=== PATIENT | female | born 1995 | race Caucasian/White ===

== ENCOUNTER 2017-03-24 07:12 | Emergency (ER) | payer SELFPAY ==
[~2017-03-24] VITALS: Ht 154.9 cm; Wt 84.5 kg
[2017-03-24] MEDS ORDERED: IRON18TA2 PO (07:34)
[2017-03-24] MEDS ORDERED: ALBU17IN INH (08:29)
[2017-03-24] MEDS ORDERED: MOBI4TAB PO (08:29)
[2017-03-24] MEDS ORDERED: ZANA4TAB PO (08:29)
[2017-03-24] MEDS ORDERED: QVAR1AER2 IN (08:30)
[2017-03-24 08:40] VITALS: BP 127/74
== END 2017-03-24 08:42 | disposition home or self-care (01) ==
LOC: M ED 07:12
DX: Z76.0 Encounter for issue of repeat prescription (principal); M54.5 Low back pain; F17.200 Nicotine dependence, unspecified, uncomplicated; J45.909 Unspecified asthma, uncomplicated; G47.30 Sleep apnea, unspecified; Z79.899 Other long term (current) drug therapy; Z88.0 Allergy status to penicillin

== ENCOUNTER 2023-01-22 02:55 | Inpatient (IN) | payer MEDICAID, SELFPAY ==
[~2023-01-22] VITALS: Ht 157.5 cm; Wt 100.0 kg
[~2023-01-22 02:55] MED LIST: ALBU17IN INH; IRON18TA2 PO; MOBI4TAB PO; QVAR80AE10 IN; ZANA4TAB PO
[2023-01-22 03:26] LABS: HEMATOCRIT 41.2 % (36.0-47.0); HEMOGLOBIN 13.6 g/dl (12.0-15.5); MEAN CORPUSCULAR HEMOGLOBIN 27.1 pg (27.0-33.0); MEAN CORPUSCULAR VOLUME 82.2 fl (80.0-96.0); PLATELET COUNT, AUTOMATED 413 10^3/uL (150-450); RED BLOOD COUNT 5.01 10^6/uL (4.00-5.40); WHITE BLOOD COUNT 12.3 10^3/uL (4.0-10.0)
[2023-01-22 03:52] LABS: ETHYL ALCOHOL (ETHANOL) 0.201 % (0.000-0.010)
[2023-01-22 03:53] LABS: ACETAMINOPHEN LEVEL < 2.0 UG/ML (10.0-20.0); ALBUMIN 4.1 G/DL (3.2-5.2); ALKALINE PHOSPHATASE 78 U/L (46-116); ALT/SGPT 40 U/L (7.0-40); AST/SGOT 36 U/L (<34); BILIRUBIN,DIRECT < 0.1 MG/DL (<0.4); BILIRUBIN,TOTAL 0.2 MG/DL (0.3-1.2); BLOOD UREA NITROGEN 11 MG/DL (9-23); CALCIUM LEVEL 9.3 MG/DL (8.5-10.1); CARBON DIOXIDE LEVEL 18 MMOL/L (20-31); CHLORIDE LEVEL 107 MMOL/L (98-107); CREATININE FOR GFR 0.62 MG/DL (0.55-1.30); GLOMERULAR FILTRATION RATE > 60.0 (>60); GLUCOSE, FASTING 101 MG/DL (60-100); POTASSIUM SERUM 3.8 MMOL/L (3.5-5.1); SALICYLATE LEVEL < 3.0 MG/DL (<30); SODIUM LEVEL 139 MMOL/L (136-145); TOTAL PROTEIN 7.6 G/DL (5.7-8.2)
[2023-01-22 03:54] LABS: THYROID STIMULATING HORMONE 2.192 uIU/ML (0.55-4.78)
[2023-01-22 03:58] LABS: HCG, SERUM QUALITATIVE NEGATIVE (NEGATIVE)
[2023-01-22 04:00] LABS: AMPHETAMINES LEVEL URINE NEGATIVE (NEGATIVE); BARBITURATES URINE NEGATIVE (NEGATIVE); BENZODIAZEPINES URINE NEGATIVE (NEGATIVE); COCAINE METABOLITE URINE NEGATIVE (NEGATIVE); METHADONE URINE NEGATIVE (NEGATIVE); OPIATES URINE NEGATIVE (NEGATIVE); PHENCYCLIDINE URINE NEGATIVE (NEGATIVE)
[2023-01-22 04:08] LABS: CANNABINOIDS URINE POSITIVE (NEGATIVE)
[2023-01-22] MEDS ORDERED: NS 1,000 ML IV ONE (07:20)
[2023-01-22] MEDS ORDERED: NICOTINE 21MG/24HR 1 EA TRANSDERMAL TD ONE (08:00)
[2023-01-22] MEDS ORDERED: ACETAMINOPHEN TAB 650MG DOSE (2X325MG) PO ONE (08:00)
[2023-01-22] MEDS ORDERED: MOM 30ML SUSPENSION UDC PO PRN (12:15)
[2023-01-22] MEDS ORDERED: MAALOX 30 ML SUSP *UDC PO PRN (12:15)
[2023-01-22 13:34] VITALS: BP 135/62
[2023-01-22] MEDS ORDERED: ALBUTEROL 90 MCG/ACT 8GM HFA INHALER INH PRN (15:30)
[2023-01-22] MEDS ORDERED: LORazepam 2 MG TAB PO PRN (15:30)
[2023-01-22 15:42] VITALS: BP 135/62
[2023-01-22] MEDS: THIAMINE 100 MG TAB PO SCH ×2 (15:48→22:07)
[2023-01-22] MEDS: MULTIVITAMINS/MINERALS THERAP 1 TAB PO SCH (15:48)
[2023-01-22] MEDS: FOLIC ACID 1MG TAB PO SCH (15:48)
[2023-01-22] MEDS: ACETAMINOPHEN TAB 650MG DOSE (2X325MG) PO PRN (15:53)
[2023-01-22] MEDS ORDERED: ALBU8.5H INH (16:22)
[2023-01-22] MEDS ORDERED: HOME MED LIST COMPLETE! XX SCH (16:25)
[2023-01-23] MEDS: traZODone 50 MG TAB PO PRN ×2 (00:30→21:31)
[2023-01-23] MEDS: OLANZapine ORAL DISINTEGRATING TAB 5MG PO PRN ×3 (00:30→15:32)
[2023-01-23 06:38] VITALS: BP 117/56
[2023-01-23 08:44] VITALS: BP 117/56
[2023-01-23] MEDS: THIAMINE 100 MG TAB PO SCH ×2 (09:00→21:31)
[2023-01-23] MEDS: FOLIC ACID 1MG TAB PO SCH (09:00)
[2023-01-23] MEDS: MULTIVITAMINS/MINERALS THERAP 1 TAB PO SCH (09:00)
[2023-01-23] MEDS: NICOTINE 21MG/24HR 1 EA TRANSDERMAL TD SCH (15:30)
[2023-01-23] MEDS: LIDOCAINE 5% (LIDODERM) PATCH TD SCH (15:34)
[2023-01-23 16:52] VITALS: BP 137/69
[2023-01-23 17:00] VITALS: BP 137/69
[2023-01-24 01:00] VITALS: BP 137/69
[2023-01-24 07:01] VITALS: BP 122/68
[2023-01-24 08:00] LABS: BLOOD UREA NITROGEN 9 MG/DL (9-23); CALCIUM LEVEL 8.3 MG/DL (8.5-10.1); CARBON DIOXIDE LEVEL 26 MMOL/L (20-31); CHLORIDE LEVEL 109 MMOL/L (98-107); CREATININE FOR GFR 0.66 MG/DL (0.55-1.30); GLOMERULAR FILTRATION RATE > 60.0 (>60); GLUCOSE, FASTING 96 MG/DL (60-100); POTASSIUM SERUM 4.2 MMOL/L (3.5-5.1); SODIUM LEVEL 140 MMOL/L (136-145)
[2023-01-24] MEDS ORDERED: FLUoxetine 10 MG CAP PO SCH (09:00)
[2023-01-24] MEDS: FOLIC ACID 1MG TAB PO SCH (09:14)
[2023-01-24] MEDS: LIDOCAINE 5% (LIDODERM) PATCH TD SCH (09:14)
[2023-01-24] MEDS: THIAMINE 100 MG TAB PO SCH (09:14)
[2023-01-24] MEDS: MULTIVITAMINS/MINERALS THERAP 1 TAB PO SCH (09:14)
[2023-01-24] MEDS: NICOTINE 21MG/24HR 1 EA TRANSDERMAL TD SCH (09:15)
[2023-01-24 14:30] VITALS: BP 122/68
[2023-01-24 18:00] VITALS: BP 126/65
[2023-01-24] MEDS ORDERED: PRAZOSIN 1 MG CAP PO SCH (21:00)
[2023-01-24] MEDS: traZODone 50 MG TAB PO PRN (21:49)
[2023-01-24 21:50] VITALS: BP 132/84
[2023-01-24] MEDS: OLANZapine ORAL DISINTEGRATING TAB 5MG PO PRN (21:50)
[2023-01-24] MEDS: ACETAMINOPHEN TAB 650MG DOSE (2X325MG) PO PRN (21:52)
[2023-01-25 06:19] VITALS: BP 124/61
[2023-01-25] MEDS: NICOTINE 21MG/24HR 1 EA TRANSDERMAL TD SCH (08:17)
[2023-01-25] MEDS: FOLIC ACID 1MG TAB PO SCH (08:17)
[2023-01-25] MEDS: LIDOCAINE 5% (LIDODERM) PATCH TD SCH (08:18)
[2023-01-25] MEDS ORDERED: NICO21PAT TD (08:29)
[2023-01-25] MEDS ORDERED: MINI1CAP PO (08:29)
[2023-01-25] MEDS ORDERED: TRAZ-252 PO (08:29)
[2023-01-25] MEDS ORDERED: LIDO5TD TD (08:29)
[2023-01-25] MEDS ORDERED: FLUO20CA22 PO (08:29)
[2023-01-25] MEDS ORDERED: FLUoxetine 20MG CAP PO SCH (09:00)
== END 2023-01-25 11:14 | disposition home or self-care (01) | DRG 755 ==
LOC: M ED 02:55 → M ED INP 12:15 → M PSY 14:20
PROVIDERS: ADMIT Psychiatry & Neurology Psychiatry; ATTEND Student in an Organized Health Care Education/Training Program
DX: F43.10 Post-traumatic stress disorder, unspecified (principal); F12.90 Cannabis use, unspecified, uncomplicated; F10.10 Alcohol abuse, uncomplicated; F32.A Depression, unspecified; F41.8 Other specified anxiety disorders; R45.851 Suicidal ideations; F17.210 Nicotine dependence, cigarettes, uncomplicated; Z88.0 Allergy status to penicillin; J45.20 Mild intermittent asthma, uncomplicated; G47.33 Obstructive sleep apnea (adult) (pediatric); E66.9 Obesity, unspecified; D72.829 Elevated white blood cell count, unspecified; E87.20 Acidosis, unspecified

== ENCOUNTER 2023-07-05 09:44 | Inpatient (IN) | payer OTHER, MEDICAID ==
[~2023-07-05] VITALS: Ht 157.5 cm; Wt 93.2 kg
[~2023-07-05 09:44] MED LIST changes: +ALBU8.5H INH; +FLUO20CA22 PO; +LIDO5TD TD; +MINI1CAP PO; +NICO21PAT TD; +TRAZ-252 PO
[2023-07-05] MEDS ORDERED: KETOROLAC 30 MG/ML 1ML VIAL IV ONE (10:25)
[2023-07-05] MEDS ORDERED: ISOVUE-370 76% 100ML VIAL As Ordered ONE (10:56)
[2023-07-05 13:04] LABS: ALBUMIN 3.1 G/DL (3.2-5.2); ALKALINE PHOSPHATASE 142 U/L (46-116); ALT/SGPT 53 U/L (7.0-40); AST/SGOT 31 U/L (<34); BILIRUBIN,TOTAL < 0.2 MG/DL (0.3-1.2); BLOOD UREA NITROGEN 11 MG/DL (9-23); CALCIUM LEVEL 8.9 MG/DL (8.5-10.1); CARBON DIOXIDE LEVEL 26 MMOL/L (20-31); CHLORIDE LEVEL 105 MMOL/L (98-107); GLOMERULAR FILTRATION RATE > 60.0 (>60); GLUCOSE, FASTING 97 MG/DL (60-100); POTASSIUM SERUM 4.8 MMOL/L (3.5-5.1); SODIUM LEVEL 138 MMOL/L (136-145); TOTAL PROTEIN 7.1 G/DL (5.7-8.2)
[2023-07-05 13:34] LABS: BASO # 0.1 10^3/uL (0.0-0.2); BASO % 0.6 % (0.0-1.0); EOS # 0.5 10^3/uL (0.0-0.5); HEMATOCRIT 39.4 % (36.0-47.0); HEMOGLOBIN 12.6 g/dl (12.0-15.5); LYMPH # 2.1 10^3/uL (1.5-5.0); MEAN CORPUSCULAR HEMOGLOBIN 27.2 pg (27.0-33.0); MEAN CORPUSCULAR VOLUME 85.1 fl (80.0-96.0); MONO # 0.5 10^3/uL (0.0-0.8); NEUTROPHILS # 7.6 10^3/uL (1.5-8.5); NEUTROPHILS % 70.1 % (36.0-66.0); PLATELET COUNT, AUTOMATED 523 10^3/uL (150-450); RED BLOOD COUNT 4.63 10^6/uL (4.00-5.40); WHITE BLOOD COUNT 10.8 10^3/uL (4.0-10.0)
[2023-07-05 13:57] LABS: INR 1.08; PROTHROMBIN TIME 13.7 SECONDS (12.5-14.5)
[2023-07-05 14:27] LABS: HIV 1&2 SCREEN NEGATIVE (NEGATIVE)
[2023-07-05] MEDS ORDERED: HOME MED LIST COMPLETE! XX SCH (14:45)
[2023-07-05] MEDS ORDERED: MED REC IN PROGRESS XX SCH (14:45)
[2023-07-05 14:59] LABS: ERYTHROCYTE SEDIMENTATION RATE > 130 mm/hr (0-20)
[2023-07-05] MEDS ORDERED: ACETAMINOPHEN TAB 650MG DOSE (2X325MG) PO PRN (15:05)
[2023-07-05 15:06] LABS: PROCALCITONIN <0.04 ng/ml
[2023-07-05 15:45] VITALS: TEMP 97.3; O2SAT 96
[2023-07-05] MEDS ORDERED: PILL CUTTER 1 EACH XX PRN (15:55)
[2023-07-05] MEDS ORDERED: KETOROLAC 30 MG/ML 1ML VIAL IV PRN (16:00)
[2023-07-05] MEDS: ALBUTEROL SULFATE 2.5MG/0.5ML INH NEB SOLN NEB SCH (19:20)
[2023-07-05] MEDS: oxyCODONE 5MG TAB PO PRN (19:37)
[2023-07-05] MEDS: tiZANidine 4 MG TAB PO PRN (19:38)
[2023-07-05 20:58] VITALS: BP 105/64; TEMP 98.1; O2SAT 100
[2023-07-05] MEDS: NICOTINE 21MG/24HR 1 EA TRANSDERMAL TD PRN (21:43)
[2023-07-06] MEDS: ALBUTEROL SULFATE 2.5MG/0.5ML INH NEB SOLN NEB SCH ×4 (00:54→19:30)
[2023-07-06] MEDS: tiZANidine 4 MG TAB PO PRN (01:09)
[2023-07-06] MEDS: oxyCODONE 5MG TAB PO PRN ×3 (01:10→21:36)
[2023-07-06 05:11] VITALS: BP_SYST 64; TEMP 96.6; O2SAT 98
[2023-07-06] MEDS ORDERED: ISOVUE-370 76% 100ML VIAL As Ordered ONE (10:32)
[2023-07-06] MEDS ORDERED: D5W/0.9% SODIUM CHLORIDE 1,000 ML IV ONE (11:10)
[2023-07-06 12:53] LABS: BASO # 0.1 10^3/uL (0.0-0.2); BASO % 0.6 % (0.0-1.0); EOS # 0.6 10^3/uL (0.0-0.5); EOS % 5.7 % (0.0-3.0); HEMATOCRIT 39.9 % (36.0-47.0); HEMOGLOBIN 12.5 g/dl (12.0-15.5); LYMPH # 1.9 10^3/uL (1.5-5.0); MEAN CORPUSCULAR HEMOGLOBIN 26.8 pg (27.0-33.0); MEAN CORPUSCULAR HGB CONC 31.3 g/dl (32.0-36.5); MEAN CORPUSCULAR VOLUME 85.4 fl (80.0-96.0); MONO # 0.5 10^3/uL (0.0-0.8); MONO % 4.9 % (2.0-8.0); NEUTROPHILS # 6.9 10^3/uL (1.5-8.5); NEUTROPHILS % 69.4 % (36.0-66.0); PLATELET COUNT, AUTOMATED 530 10^3/uL (150-450); RED BLOOD COUNT 4.67 10^6/uL (4.00-5.40)
[2023-07-06 13:22] LABS: BLOOD UREA NITROGEN 10 MG/DL (9-23); CALCIUM LEVEL 8.8 MG/DL (8.5-10.1); CARBON DIOXIDE LEVEL 26 MMOL/L (20-31); CHLORIDE LEVEL 103 MMOL/L (98-107); GLOMERULAR FILTRATION RATE > 60.0 (>60); GLUCOSE, FASTING 82 MG/DL (60-100); POTASSIUM SERUM 4.7 MMOL/L (3.5-5.1); SODIUM LEVEL 137 MMOL/L (136-145)
[2023-07-06 16:00] VITALS: BP 97/66; TEMP 97.9; O2SAT 96
[2023-07-06] MEDS ORDERED: EPINEPHrine 1MG/10ML SYRINGE 1.5IN As Ordered ONE (16:49)
[2023-07-06] MEDS ORDERED: LIDOCAINE 2% MDV 20ML VIAL As Ordered ONE (16:49)
[2023-07-06] MEDS ORDERED: THROMBIN 5,000 UNITS VIAL As Ordered ONE (16:49)
[2023-07-06] MEDS ORDERED: CETACAINE SPRAY 5GM As Ordered ONE (16:49)
[2023-07-06] MEDS ORDERED: LIDOCAINE 2% 100MG/5ML SDV (FOR ANES.) As Ordered ONE (16:53)
[2023-07-06] MEDS ORDERED: propofoL 200 MG/20 ML VIAL As Ordered ONE (16:53)
[2023-07-06] MEDS ORDERED: ONDANSETRON 4MG 2ML VIAL As Ordered ONE (16:53)
[2023-07-06] MEDS ORDERED: MIDAZOLAM INJ 2MG/2ML VIAL As Ordered ONE (16:53)
[2023-07-06] MEDS ORDERED: ROCURONIUM BROMIDE 50MG/5ML VIAL As Ordered ONE (16:53)
[2023-07-06] MEDS ORDERED: fentaNYL 100 MCG/2 ML INJECTION As Ordered ONE ×2 (16:53→17:56)
[2023-07-06] MEDS: fentaNYL 100 MCG/2 ML INJECTION IV PRN ×2 (17:53→18:00)
[2023-07-06] MEDS ORDERED: IPRATROPIUM 0.5MG/ALBUTEROL 2.5MG INH SOL UD 3ML (DUONEB) NEB STA (17:54)
[2023-07-06] MEDS: NICOTINE 21MG/24HR 1 EA TRANSDERMAL TD PRN (21:36)
[2023-07-06 22:00] VITALS: BP 100/65; TEMP 97.9; O2SAT 98
[2023-07-07] MEDS: ALBUTEROL SULFATE 2.5MG/0.5ML INH NEB SOLN NEB SCH ×2 (01:28→07:54)
[2023-07-07] MEDS: tiZANidine 4 MG TAB PO PRN (02:55)
[2023-07-07 06:00] VITALS: BP 100/61; TEMP 98.1; O2SAT 99
[2023-07-07 07:56] LABS: BASO % 0.1 % (0.0-1.0); EOS % 0.1 % (0.0-3.0); HEMATOCRIT 36.6 % (36.0-47.0); HEMOGLOBIN 11.7 g/dl (12.0-15.5); LYMPH # 1.2 10^3/uL (1.5-5.0); MEAN CORPUSCULAR HEMOGLOBIN 27.1 pg (27.0-33.0); MEAN CORPUSCULAR VOLUME 84.7 fl (80.0-96.0); MONO # 0.4 10^3/uL (0.0-0.8); MONO % 3.1 % (2.0-8.0); NEUTROPHILS # 11.7 10^3/uL (1.5-8.5); NEUTROPHILS % 87.3 % (36.0-66.0); PLATELET COUNT, AUTOMATED 510 10^3/uL (150-450); RED BLOOD COUNT 4.32 10^6/uL (4.00-5.40); WHITE BLOOD COUNT 13.4 10^3/uL (4.0-10.0)
[2023-07-07] MEDS ORDERED: TIZA10TA PO (07:57)
[2023-07-07] MEDS ORDERED: IBUP-1022 PO (07:57)
[2023-07-07] MEDS ORDERED: ACET-897 PO (07:57)
[2023-07-07] MEDS ORDERED: OXYC-517 PO (07:57)
[2023-07-07 08:20] LABS: BLOOD UREA NITROGEN 10 MG/DL (9-23); CALCIUM LEVEL 9.1 MG/DL (8.5-10.1); CARBON DIOXIDE LEVEL 25 MMOL/L (20-31); CHLORIDE LEVEL 104 MMOL/L (98-107); CREATININE FOR GFR 0.56 MG/DL (0.55-1.30); GLOMERULAR FILTRATION RATE > 60.0 (>60); GLUCOSE, FASTING 106 MG/DL (60-100); POTASSIUM SERUM 4.6 MMOL/L (3.5-5.1); SODIUM LEVEL 139 MMOL/L (136-145)
== END 2023-07-07 11:14 | disposition home or self-care (01) | DRG 144 ==
LOC: M ED 09:44 → EDBD 09:44 → M ED INP 15:01 → ENRESERV 15:24 → M MSPAV 15:44
PROVIDERS: ADMIT Internal Medicine Nephrology; ATTEND Internal Medicine Pulmonary Disease
PROC: 0B9F8ZX Drainage of Right Lower Lung Lobe, Via Natural or Artificial Opening Endoscopic, Diagnostic (ICD-10-PCS; 2023-07-06)
PROC: 0B9J8ZX Drainage of Left Lower Lung Lobe, Via Natural or Artificial Opening Endoscopic, Diagnostic (ICD-10-PCS; principal; 2023-07-06 18:42)
DX: R91.8 Other nonspecific abnormal finding of lung field (principal); K76.89 Other specified diseases of liver; R07.81 Pleurodynia; J45.20 Mild intermittent asthma, uncomplicated; E66.9 Obesity, unspecified; G47.33 Obstructive sleep apnea (adult) (pediatric); F10.90 Alcohol use, unspecified, uncomplicated; F12.90 Cannabis use, unspecified, uncomplicated; F41.9 Anxiety disorder, unspecified; M54.9 Dorsalgia, unspecified; F32.A Depression, unspecified; F17.200 Nicotine dependence, unspecified, uncomplicated; Z90.49 Acquired absence of other specified parts of digestive tract; Z68.38 Body mass index [BMI] 38.0-38.9, adult; Z88.1 Allergy status to other antibiotic agents; Z91.018 Allergy to other foods; N28.89 Other specified disorders of kidney and ureter; Z20.822 Contact with and (suspected) exposure to COVID-19

== ENCOUNTER 2024-02-07 12:26 | Emergency (ER) | payer OTHER ==
[~2024-02-07] VITALS: Ht 157.5 cm; Wt 97.7 kg
[~2024-02-07 12:26] MED LIST changes: +ACET-897 PO; +IBUP-1022 PO; +OXYC-517 PO; +TIZA10TA PO
[2024-02-07 17:51] LABS: HCG, SERUM QUALITATIVE NEGATIVE (NEGATIVE)
[2024-02-07] MEDS ORDERED: ISOVUE-370 76% 100ML VIAL As Ordered ONE (17:51)
[2024-02-07 17:54] LABS: BASO % 0.2 % (0.0-1.0); EOS # 0.2 10^3/uL (0.0-0.5); EOS % 1.3 % (0.0-3.0); HEMATOCRIT 39.2 % (36.0-47.0); HEMOGLOBIN 12.8 g/dl (12.0-15.5); LYMPH # 3.3 10^3/uL (1.5-5.0); LYMPH % 26.4 % (24.0-44.0); MEAN CORPUSCULAR HGB CONC 32.7 g/dl (32.0-36.5); MEAN CORPUSCULAR VOLUME 85.8 fl (80.0-96.0); MONO # 0.7 10^3/uL (0.0-0.8); MONO % 5.2 % (2.0-8.0); NEUTROPHILS # 8.4 10^3/uL (1.5-8.5); NEUTROPHILS % 66.6 % (36.0-66.0); PLATELET COUNT, AUTOMATED 345 10^3/uL (150-450); RED BLOOD COUNT 4.57 10^6/uL (4.00-5.40); WHITE BLOOD COUNT 12.6 10^3/uL (4.0-10.0)
[2024-02-07 18:00] VITALS: BP 132/91; TEMP 98.4; O2SAT 100
[2024-02-07 18:08] LABS: INR 1.03; PARTIAL THROMBOPLASTIN TIME 30.3 SECONDS (24.8-34.2); PROTHROMBIN TIME 13.2 SECONDS (12.5-14.5)
[2024-02-07] MEDS: ACETAMINOPHEN TAB 650MG DOSE (2X325MG) PO ONE (18:28)
[2024-02-07] MEDS ORDERED: AZIT-12 PO (19:33)
[2024-02-07] MEDS ORDERED: FLON1SPR NARES (19:33)
== END 2024-02-07 19:40 | disposition home or self-care (01) ==
LOC: EDBD 12:26 → M ED 12:26
DX: H65.02 Acute serous otitis media, left ear (principal); G51.0 Bell's palsy; F17.200 Nicotine dependence, unspecified, uncomplicated; F32.A Depression, unspecified; Z88.1 Allergy status to other antibiotic agents; Z91.018 Allergy to other foods; Z79.1 Long term (current) use of non-steroidal anti-inflammatories (NSAID); Z79.899 Other long term (current) drug therapy
CPT/HCPCS: 36415; 70450; 70496; 70498; 71045; 80047; 84703; 85025; 85610; 85730; 86618; 87486; 87581; 87633; 87798; 93005; 93041; 94760; 99285; Q9967